=== PATIENT | male | born 1980 | race Two or more races ===

== ENCOUNTER → 2022-03-15 11:53 | Outpatient (CLI) | payer OTHER, SELFPAY ==
--- NOTE | ~2022-03-15 | XR_ITS ---
EXAMINATION: XR abdomen/kub 1V INDICATION: Bilateral flank and lower abdominal pain TECHNIQUE: Supine views of the abdomen were obtained on 2 radiographs. COMPARISON: 04/04/2016 FINDINGS: A 6 mm calcification projects over right L4 transverse process. The bowel gas pattern is no rmal. The visualized lung bases are clear. IMPRESSION: 1. 6 mm calcification of the right mid abdomen which could reflect a ureteral stone. Consider correla tion with urinalysis and possible CT. Reviewed, dictated and finalized at location L. RWEAR HEMMER IMPRESSION: 1. 6 mm calcification of the right mid abdomen which could reflect a ureteral s tone. Consider correlation with urinalysis and possible CT.
--- NOTE | ~2022-03-15 | XR_ITS ---
EXAMINATION: XR thoracic spine 3V DATE: 03/15/2022 12:17 INDICATION: Bilateral flank pain TECHNIQUE: AP, lateral and lateral swimmer's views of the thoracic spine were obtained. COMPARISON: None. FINDINGS: No fracture, dislocation, or subluxation. The vertebral body heights, alignment, and interv ertebral disc spaces are normal. The paravertebral soft tissues are unremarkable. IMPRESSION: 1. No radiographic correlate for the patient's symptoms. Reviewed, dictated and finalized at location L. RESSOR SERVICE TECHNICIAN
== END ==
PROVIDERS: PCP Family Medicine; Visit Provider Family Medicine
DX: R10.9 Unspecified abdominal pain (principal)
CPT/HCPCS: 72072; 74018

== ENCOUNTER → 2022-03-23 10:11 | Outpatient (CLI) | payer OTHER, SELFPAY ==
--- NOTE | ~2022-03-23 | CT_ITS ---
EXAMINATION: CT abdomen pelvis wo con DATE: 03/23/2022 10:28 INDICATION: Right ureteral stone TECHNIQUE: Computed tomography (CT) of the abdomen and pelvis was performed without intravenous contr ast. Automated exposure control and iterative reconstruction technique were employed. Exam dose: 486 .99 mGy-cm total exam DLP. COMPARISON: 03/15/2022 KUB: 6 microcalcifications reported in the right midabdomen overlying right L4 transverse process 03/12/2016 CT abdomen pelvis FINDINGS: The lung bases are clear. Normal heart size. No pericardial or pleural effusion. The gallbladder is contracted. No hepatic, splenic, pancreatic, adrenal or renal space-occupying mass lesion is detected. There is a nonobstructing 3.7 mm left renal calculus. No other urinary tract ca lculus or hydroureteronephrosis. There is a prominent up to approximately 9.5 cm calcification in the mesentery, benign in appearance, without any abnormal soft tissue mass or associated scarring. Normal appendix. No bowel obstruction, bowel wall thickening, pneumatosis or free air. Normal caliber of the abdominal aorta. No intraperitoneal or retroperitoneal mass lesion or lymphade nopathy or ascites. Very small fat containing umbilical hernia. Included skeletal structures are unremarkable. IMPRESSION: 3.7 mm nonobstructing left renal calculus. No other urinary tract calculus or hydrourete ronephrosis Normal appendix Reviewed, dictated and finalized at Location A. Reviewed, dictated and finalized at location B. CONTROL ENGINEER IMPRESSION: 3.7 mm nonobstructing left renal calculus. No other urinary tract calculus or hydroureteronephrosis Normal appendix
== END ==
PROVIDERS: PCP Family Medicine; Visit Provider Urology
DX: N20.0 Calculus of kidney (principal)
CPT/HCPCS: 74176

== ENCOUNTER → 2022-10-24 10:58 | Outpatient (CLI) | payer OTHER, SELFPAY ==
--- NOTE | ~2022-10-24 | XR_ITS ---
XR abdomen/kub 1V 10/24/2022 11:36 Indication: Ureteral stone Procedure: KUB Comparison: 03/15/2022 Findings: There is a 9 mm calcification lateral to the bowel 3 vertebra on the right, suspicious for proximal ureteral or UPJ stone. Bowel gas pattern is nonobstructive. Moderate colonic fecal loading. No acute osseous abnormality. Impression: 1: Possible right ureteral or UPJ stone measuring 9 mm. Reviewed, dictated and finalized at location B. Impression: 1: Possible right ureteral or UPJ stone measuring 9 mm.
== END ==
PROVIDERS: PCP Urology; Visit Provider Urology
DX: N20.1 Calculus of ureter (principal)
CPT/HCPCS: 74018

== ENCOUNTER 2023-06-27 16:04 | Outpatient (CLI) | payer OTHER, SELFPAY ==
--- NOTE | ~2023-06-27 | XR_ITS ---
XR wrist LT min 3V DATE: 06/27/2023 16:19 INDICATION: Right wrist pain TECHNIQUE: 4 views COMPARISON: None FINDINGS: No fracture or dislocation, periosteal reaction or bone destruction. Joint spaces are prese rved. No erosive change or chondrocalcinosis. IMPRESSION: Negative Reviewed, dictated and finalized at location A. IMPRESSION: Negative
--- NOTE | ~2023-06-27 | XR_ITS ---
XR wrist RT min 3V DATE: 06/27/2023 16:19 INDICATION: Right wrist pain TECHNIQUE: 4 views COMPARISON: None FINDINGS: No fracture or dislocation, avascular necrosis or bone destruction is detected. Joint space s are preserved. No erosive change or chondrocalcinosis. IMPRESSION: Negative Reviewed, dictated and finalized at location A. IMPRESSION: Negative
== END 2023-06-27 16:05 | disposition home or self-care (01) ==
PROVIDERS: PCP Family Medicine; Visit Provider Plastic Surgery
DX: M25.531 Pain in right wrist (principal); M25.532 Pain in left wrist
CPT/HCPCS: 73110

== ENCOUNTER 2023-07-11 12:46 | Outpatient (CLI) | payer OTHER, SELFPAY ==
--- NOTE | ~2023-07-11 | MR_ITS ---
EXAMINATION: MR wrist RT wo/w con DATE: 07/11/2023 13:45 INDICATION: Right wrist pain and limited range of motion. TECHNIQUE: Magnetic resonance imaging (MRI) of the right wrist was performed without and with 18 mL M ultihance intravenous contrast. Sequences performed include axial, sagittal and coronal T1-weighted F SE and T2-weighted FS FSE, axial T1-weighted FS FSE and postcontrast T1-weighted FS FSE. COMPARISON: Right wrist radiographs dated 06/27/2023 FINDINGS: Intrinsic ligaments: The scapholunate and lunotriquetral ligaments are normal. Triangular fibrocartilage complex (TFCC): The triangular fibrocartilage including its foveal and styloid attachments as well as the dorsal and volar radioulnar ligaments are normal. The ulnar collateral ligament, ulnotriquetral ligament and men iscal homologue are normal. The extensor carpi ulnaris tendon sheath is normal. Extensor wrist: Extensor tendons of the wrist are normal. No tenosynovitis. Flexor wrist: The flexor tendons of the wrist are normal. No abnormality in the carpal tunnel with normal median n erve. Guyon's canal: Guyon's canal including the ulnar nerve and artery are normal. Bones/other: Normal marrow signal. No fracture, avascular necrosis or pathologic marrow replacing process. Small i ntraosseous ganglion cyst at the ulnar side of the lunate arising from the dorsal margin of the artic ulation with the scaphoid. Joint spaces are normal with no focal cartilage defects appreciated. There is a 5 x 5 x 2 mm fluid collection likely representing a ganglion cyst is located dorsal to the thaddeus te between the radial lunotriquetral ligament and the more superficial extensor digitorum tendons and likely arising from the midcarpal joint. IMPRESSION: 1. 5 x 5 x 2 mm likely ganglion cyst arising from midcarpal joint and dorsal to the lunate and small intraosseous ganglion cyst at the dorsal/ulnar aspect of the lunate. Otherwise normal right wrist MRI . Reviewed, dictated and finalized at location A. IMPRESSION: 1. 5 x 5 x 2 mm likely ganglion cyst arising from midcarpal joint and dorsal to the lunate and small intraosseous ganglion cyst at the dorsal/ulnar aspect of the lunate. Otherwise normal right wrist MRI.
== END 2023-07-11 12:47 ==
PROVIDERS: PCP Family Medicine; Visit Provider Plastic Surgery
DX: M25.531 Pain in right wrist (principal); M67.431 Ganglion, right wrist
CPT/HCPCS: 73223; A9577

== ENCOUNTER 2023-08-07 05:55 | Day surgery (SDC) | payer OTHER, SELFPAY ==
[2023-06-23 09:07] VITALS: BMI 25.7
[2023-07-20 14:50] VITALS: BMI 24.4
--- NOTE | 2023-08-01 09:35 | PM.HPGS ---
History of Present Illness History of Present Illness Consent: Risks, benefits, and alternatives have been discussed and questions answered. Patient agrees to proceed with procedure. Chief complaint: Gerd w/o esophagitis, dysphonia Narrative: David Molina is a 43 year old male with persistent Being issues with his voice becoming hoarse and muffled and feeling of fullness in his throat. ENT physician could not find anything wrong. He was tried on medication is not seem to be effective. Now he is taking omeprazole 40 mg daily and had some improvement. He has never had heartburn. He denies dysphagia except occasionally for a pill. Review of Systems Review of Systems: All systems reviewed & are unremarkable except as noted in HPI and below PMFSH Past Medical History Medical History Chronic hoarseness Environmental allergies GERD (gastroesophageal reflux disease) Hemorrhoids Vitamin D deficiency Family History Family History Father Family history of coronary artery disease Other Anxiety Depression Diabetes mellitus Family history of thyroid disease Heart disease Social History Social History Smoking status: Never smoker Alcohol intake: current Drinks per week: 3 Substance use: never Substance use type: does not use Do You Feel Safe in your Home?: Yes Lack of Transportation: No Lack of Food: Never True Current Housing: I Have Housing Concerned About Future Housing: No Difficulty Paying Gas/Electric Bills: No Difficulty Paying for Meds: No Currently Unemployed: No Education: Bachelor's Degree Difficulty w/ Childcare or Family Care: No Living arrangements: with family Occupation/Education: occupation Gender identity (if verbalized by the patient): Male Spiritual care concerns: No Agree to blood products: Yes Meds Home Medications and Allergies Home Medications Medication Instructions Recorded Confirmed Type cholecalciferol (vitamin D3) 50 50 mcg PO DAILY #90 tabs 10/31/22 08/07/23 Rx mcg (2,000 unit) tablet fluticasone propionate 50 2 spray intranasal DAILY PRN 05/30/23 08/07/23 History mcg/actuation nasal Allergy Symptoms spray,suspension (Flonase Allergy Relief) loratadine 10 mg tablet (Claritin) 10 mg PO DAILY PRN Allergy Symptoms 05/30/23 08/07/23 History omeprazole 40 mg capsule,delayed 40 mg PO DAILY #90 caps 05/30/23 08/07/23 Rx release Allergies Allergy/AdvReac Type Severity Reaction Status Date / Time No Known Allergies Allergy Verified 08/07/23 06:22 Exam Const: General: alert Orientation/consciousness: patient oriented x3 Resp: Auscultation: clear to auscultation bilaterally Cardio: Rhythm: regular rhythm GI: GI Palp: Yes Soft to palpation and No Tenderness to palpation present (GI) Neuro: General: patient oriented x3 Assessment and Plan Assessment and plan (1) GERD (gastroesophageal reflux disease): Qualifiers: Esophagitis presence: without esophagitis Qualified Code(s): K21.9 - Gastro-esophageal reflux disease without esophagitis Code(s): K21.9 - Gastro-esophageal reflux disease without esophagitis Status: Acute Assessment and Plan: EGD with possible biopsy or dilatation or cautery.
[2023-08-07 06:23] VITALS: BP 108/79; PULSE 60; RESP 18; TEMP 36.8; O2SAT 99
--- NOTE | 2023-08-07 07:11 | WPDANESEPPF ---
Anes - Initial Pre Proc Eval Procedure: Operation Date: 08/07/23 07:30 Proposed Procedures p Esophagogastroduodenoscopy - Anival Taylor MD Date/Time: 08/07/23 07:11 Surgeon: Anival Taylor MD Pre Op Diagnosis: Gerd w/o esophagitis, dysphonia Patient Data Age: 43 Gender: M Height: 1.88 m Weight: 86.7 kg Last Vital Signs Temp 36.8 C 08/07/23 06:23 Pulse 60 08/07/23 06:23 Resp 18 08/07/23 06:23 BP 108/79 08/07/23 06:23 Pulse Ox 99 08/07/23 06:23 O2 Del Method Room Air 08/07/23 06:23 Allergies Allergy/AdvReac Type Severity Reaction Status Date / Time No Known Allergies Allergy Verified 08/07/23 06:22 Home Medications Medication Instructions Recorded Confirmed Type cholecalciferol (vitamin D3) 50 50 mcg PO DAILY #90 tabs 10/31/22 08/07/23 Rx mcg (2,000 unit) tablet fluticasone propionate 50 2 spray intranasal DAILY PRN 05/30/23 08/07/23 History mcg/actuation nasal Allergy Symptoms spray,suspension (Flonase Allergy Relief) loratadine 10 mg tablet (Claritin) 10 mg PO DAILY PRN Allergy Symptoms 05/30/23 08/07/23 History omeprazole 40 mg capsule,delayed 40 mg PO DAILY #90 caps 05/30/23 08/07/23 Rx release Patient hx anesthesia problems: none Family hx anesthesia problems: none Results Review: All pre-operative results and documents have been reviewed as part of the pre-operative evaluation. [facility] Past Medical History Medical History Chronic hoarseness Environmental allergies GERD (gastroesophageal reflux disease) Hemorrhoids Vitamin D deficiency Family History Family History Father Family history of coronary artery disease Other Anxiety Depression Diabetes mellitus Family history of thyroid disease Heart disease Social History Social History Smoking status: Never smoker Alcohol intake: current Drinks per week: 3 Substance use: never Substance use type: does not use Do You Feel Safe in your Home?: Yes Lack of Transportation: No Lack of Food: Never True Current Housing: I Have Housing Concerned About Future Housing: No Difficulty Paying Gas/Electric Bills: No Difficulty Paying for Meds: No Currently Unemployed: No Education: Bachelor's Degree Difficulty w/ Childcare or Family Care: No Living arrangements: with family Occupation/Education: occupation Gender identity (if verbalized by the patient): Male Spiritual care concerns: No Agree to blood products: Yes Anes - Eval Final PreProcedure Day of Procedure 08/07/23 07:11 Patient weight: normal Heart: regular rate and rhythm Lungs: clear to auscultation Airway: Mallampati scale class II Neurological: alert and oriented Last oral intake: >/= 8 hours ASA classification: II Emergent: no Anesthetic plan: proceed Anesthesia type and monitoring: general GIVS and standard monitoring Results Review: All pre-operative results and documents have been reviewed as part of the pre-operative evaluation. Informed Consent: The patient's anesthetic plan and its attendant risks and benefits were discussed with the patient/family/POA. Questions were solicited and answers provided to the satisfaction of the patient/family/POA.
[2023-08-07] MEDS: LACTATED RINGERS 1,000 ML 150 ML IV CONT (07:18)
[2023-08-07 07:40] VITALS: BP 104/75; PULSE 80; RESP 14; O2SAT 99
[2023-08-07 07:50] VITALS: BP 101/71; PULSE 60; RESP 15; O2SAT 98
[2023-08-07 08:00] VITALS: BP 103/73; PULSE 59; RESP 14; O2SAT 99
--- NOTE | 2023-08-07 08:40 | WPDANESPN ---
Anes - Prog Note Post-Op Date/Time: 08/07/23 08:40 Cardiovascular status: normal Respiratory status: normal Airway patency: baseline Mental status: baseline Post-Op hydration status: normal Vital Signs: Last Vital Signs Temp 36.8 C 08/07/23 06:23 Pulse 59 L 08/07/23 08:00 Resp 14 08/07/23 08:00 BP 103/73 08/07/23 08:00 Pulse Ox 99 08/07/23 08:00 O2 Del Method Room Air 08/07/23 08:00 Pain Score (VAS): 0/10 I/O: Intake & Output 08/06/23 08/07/23 08/07/23 23:59 07:59 15:59 Intake Total 200 400 Balance 200 400 Patient Feedback: Patient satisfied with anesthetic care.
--- NOTE | 2023-08-07 08:43 | SUR.PHASEII ---
Pt's ride delayed for pickup following procedure at [facility]. Pt recovered and doing well, VSS. Pt's ride to call upon arrival. Pt resting comfortably in post-op room until ride arrives, pt states no further needs.
== END 2023-08-07 08:44 | disposition home or self-care (01) ==
PROVIDERS: PCP Family Medicine; Visit Provider Internal Medicine Gastroenterology
PROC: 0DJ08ZZ Inspection of Upper Intestinal Tract, Via Natural or Artificial Opening Endoscopic (ICD-10-PCS; CPT 43235; principal; 2023-08-07 07:30)
DX: K21.9 Gastro-esophageal reflux disease without esophagitis (principal)
CPT/HCPCS: 43239

== ENCOUNTER 2023-08-07 07:00 | Outpatient (NON) | payer OTHER, SELFPAY | END 2023-08-08 14:07 | disposition home or self-care (01) | PROVIDERS: PCP Family Medicine; Visit Provider Internal Medicine Gastroenterology | DX: K21.9 Gastro-esophageal reflux disease without esophagitis (principal) | CPT/HCPCS: 88305 ==

== ENCOUNTER 2023-10-16 06:18 | Day surgery (SDC) | payer OTHER, SELFPAY ==
[2023-09-21 08:46] VITALS: BMI 24.4
[2023-10-04 10:39] VITALS: BMI 24.6
[2023-10-16 06:57] VITALS: BP 106/76; PULSE 67; RESP 16; TEMP 36.8; O2SAT 98; BMI 24.0
--- NOTE | 2023-10-16 07:01 | PM.HPGS ---
History of Present Illness History of Present Illness Consent: Risks, benefits, and alternatives have been discussed and questions answered. Patient agrees to proceed with procedure. Chief complaint: Neoplasm Screening Narrative: David Molina is a 43 year old male who is referred for colon cancer screening. Review of Systems Review of Systems: All systems reviewed & are unremarkable except as noted in HPI and below PMFSH Past Medical History Medical History Chronic hoarseness Environmental allergies GERD (gastroesophageal reflux disease) Hemorrhoids Vitamin D deficiency Family History Family History Father Family history of coronary artery disease Other Anxiety Depression Diabetes mellitus Family history of thyroid disease Heart disease Social History Social History Smoking status: Never smoker Alcohol intake: current Drinks per week: 3 Substance use: never Substance use type: does not use Do You Feel Safe in your Home?: Yes Lack of Transportation: No Lack of Food: Never True Current Housing: I Have Housing Concerned About Future Housing: No Difficulty Paying Gas/Electric Bills: No Difficulty Paying for Meds: No Currently Unemployed: No Education: Bachelor's Degree Difficulty w/ Childcare or Family Care: No Living arrangements: with family Occupation/Education: occupation Gender identity (if verbalized by the patient): Male Spiritual care concerns: No Agree to blood products: Yes Meds Home Medications and Allergies Home Medications Medication Instructions Recorded Confirmed Type cholecalciferol (vitamin D3) 50 50 mcg PO DAILY #90 tabs 10/31/22 10/04/23 Rx mcg (2,000 unit) tablet fluticasone propionate 50 2 spray intranasal DAILY PRN 05/30/23 10/04/23 History mcg/actuation nasal Allergy Symptoms spray,suspension (Flonase Allergy Relief) loratadine 10 mg tablet (Claritin) 10 mg PO DAILY PRN Allergy Symptoms 05/30/23 10/04/23 History Allergies Allergy/AdvReac Type Severity Reaction Status Date / Time No Known Allergies Allergy Verified 10/16/23 06:55 Vital Signs Vital Signs - 24 hr 10/16/23 06:57 Temperature 36.8 C Pulse Rate 67 Respiratory Rate 16 Blood Pressure 106/76 Pulse Oximetry 98 Oxygen Delivery Room Air Exam Resp: Auscultation: clear to auscultation bilaterally Cardio: Rate: regular rate Rhythm: regular rhythm GI: GI Palp: Yes Soft to palpation and No Tenderness to palpation present (GI) Assessment and Plan Assessment and plan (1) Colon cancer screening: Code(s): Z12.11 - Encounter for screening for malignant neoplasm of colon Status: Acute Assessment and Plan: Colonoscopy with possible biopsy or polypectomy or cautery or injection of substances.
[2023-10-16] MEDS: LACTATED RINGERS 1,000 ML 150 ML IV CONT (07:10)
--- NOTE | 2023-10-16 07:12 | WPDANESEPPF ---
Anes - Initial Pre Proc Eval Procedure: Operation Date: 10/16/23 08:00 Proposed Procedures p Screening Colonoscopy - Anival Taylor MD Date/Time: 10/16/23 07:12 Surgeon: Anival Taylor MD Pre Op Diagnosis: Neoplasm Screening Patient Data Age: 43 Gender: M Height: 1.88 m Weight: 85 kg Last Vital Signs Temp 36.8 C 10/16/23 06:57 Pulse 67 10/16/23 06:57 Resp 16 10/16/23 06:57 BP 106/76 10/16/23 06:57 Pulse Ox 98 10/16/23 06:57 O2 Del Method Room Air 10/16/23 06:57 Allergies Allergy/AdvReac Type Severity Reaction Status Date / Time No Known Allergies Allergy Verified 10/16/23 06:55 Home Medications Medication Instructions Recorded Confirmed Type cholecalciferol (vitamin D3) 50 50 mcg PO DAILY #90 tabs 10/31/22 10/04/23 Rx mcg (2,000 unit) tablet fluticasone propionate 50 2 spray intranasal DAILY PRN 05/30/23 10/04/23 History mcg/actuation nasal Allergy Symptoms spray,suspension (Flonase Allergy Relief) loratadine 10 mg tablet (Claritin) 10 mg PO DAILY PRN Allergy Symptoms 05/30/23 10/04/23 History Patient hx anesthesia problems: none Family hx anesthesia problems: none Results Review: All pre-operative results and documents have been reviewed as part of the pre-operative evaluation. [facility] Past Medical History Medical History Chronic hoarseness Environmental allergies GERD (gastroesophageal reflux disease) Hemorrhoids Vitamin D deficiency Family History Family History Father Family history of coronary artery disease Other Anxiety Depression Diabetes mellitus Family history of thyroid disease Heart disease Social History Social History Smoking status: Never smoker Alcohol intake: current Drinks per week: 3 Substance use: never Substance use type: does not use Do You Feel Safe in your Home?: Yes Lack of Transportation: No Lack of Food: Never True Current Housing: I Have Housing Concerned About Future Housing: No Difficulty Paying Gas/Electric Bills: No Difficulty Paying for Meds: No Currently Unemployed: No Education: Bachelor's Degree Difficulty w/ Childcare or Family Care: No Living arrangements: with family Occupation/Education: occupation Gender identity (if verbalized by the patient): Male Spiritual care concerns: No Agree to blood products: Yes Anes - Eval Final PreProcedure Day of Procedure 10/16/23 07:12 Patient weight: normal Heart: regular rate and rhythm Lungs: clear to auscultation Airway: Mallampati scale class II Neurological: alert and oriented Last oral intake: >/= 8 hours ASA classification: II Emergent: no Anesthetic plan: proceed Anesthesia type and monitoring: general GIVS and standard monitoring Results Review: All pre-operative results and documents have been reviewed as part of the pre-operative evaluation. Informed Consent: The patient's anesthetic plan and its attendant risks and benefits were discussed with the patient/family/POA. Questions were solicited and answers provided to the satisfaction of the patient/family/POA.
[2023-10-16 08:33] VITALS: BP 102/70; PULSE 68; RESP 15; O2SAT 100
--- NOTE | 2023-10-16 08:39 | WPDANESPN ---
Anes - Prog Note Post-Op Date/Time: 10/16/23 08:39 Cardiovascular status: normal Respiratory status: normal Airway patency: baseline Mental status: baseline Post-Op hydration status: normal Vital Signs: Last Vital Signs Temp 36.8 C 10/16/23 06:57 Pulse 68 10/16/23 08:36 Resp 15 10/16/23 08:36 BP 102/70 10/16/23 08:36 Pulse Ox 100 10/16/23 08:36 O2 Del Method Room Air 10/16/23 08:36 Pain Score (VAS): 0/10 I/O: Intake & Output 10/15/23 10/16/23 10/16/23 23:59 07:59 15:59 Intake Total 800 Balance 800 Patient Feedback: Patient satisfied with anesthetic care.
[2023-10-16 08:43] VITALS: BP 113/76; PULSE 68; RESP 16; O2SAT 100
[2023-10-16 08:53] VITALS: BP 122/76; PULSE 60; RESP 18; O2SAT 100
== END 2023-10-16 09:12 | disposition home or self-care (01) ==
PROVIDERS: PCP Family Medicine; Visit Provider Internal Medicine Gastroenterology
PROC: 0DJD8ZZ Inspection of Lower Intestinal Tract, Via Natural or Artificial Opening Endoscopic (ICD-10-PCS; CPT 45378; principal; 2023-10-16 08:00)
DX: Z12.11 Encounter for screening for malignant neoplasm of colon (principal); D12.4 Benign neoplasm of descending colon; K64.8 Other hemorrhoids
CPT/HCPCS: 45385

== ENCOUNTER 2023-10-16 07:44 | Outpatient (NON) | payer OTHER, SELFPAY | END 2023-10-16 07:45 | disposition home or self-care (01) | PROVIDERS: PCP Family Medicine; Visit Provider Internal Medicine Gastroenterology | DX: Z12.11 Encounter for screening for malignant neoplasm of colon (principal) | CPT/HCPCS: 88305 ==

== ENCOUNTER 2023-10-30 15:37 | Outpatient (CLI) | payer OTHER, SELFPAY ==
--- NOTE | ~2023-10-30 | XR_ITS ---
EXAMINATION: XR abdomen/kub 1V DATE: 10/30/2023 15:49 INDICATION: Left kidney stone. TECHNIQUE: A supine view of the abdomen on 2 radiographs was obtained. COMPARISON: Abdomen radiographs 10/24/2022, CT abdomen and pelvis 03/23/2022 FINDINGS: There are no dilated loops of bowel. There is no visible urolithiasis. There is a chronic r ight abdominal calcification. IMPRESSION: 1. No visible urolithiasis. Reviewed, dictated and finalized at location A. IMPRESSION: 1. No visible urolithiasis.
== END 2023-10-30 15:38 ==
LOC: MICIMG 15:39
PROVIDERS: PCP Urology; Visit Provider Urology
DX: N20.0 Calculus of kidney (principal)
CPT/HCPCS: 74018

== ENCOUNTER 2023-10-31 11:19 | Outpatient (CLI) | payer OTHER, SELFPAY ==
--- NOTE | ~2023-10-31 | US_ITS ---
EXAMINATION: US thyroid DATE: 10/31/2023 11:35 INDICATION: Localized swelling, mass and lump, neck. TECHNIQUE: Multiple ultrasound images of the thyroid were obtained. COMPARISON: None. FINDINGS: The right thyroid lobe measures 6.2 x 1.8 x 2.2 cm. The left thyroid lobe measures 5.9 x 1.3 x 1.6 c m. There is normal echotexture and echogenicity throughout the thyroid gland. No discrete nodules id entified. Normal vascular flow is present. IMPRESSION: 1. Normal thyroid. Reviewed, dictated and finalized at location A. IMPRESSION: 1. Normal thyroid.
== END 2023-10-31 11:20 ==
LOC: MICIMG 11:20
PROVIDERS: PCP Nurse Practitioner Family; Visit Provider Nurse Practitioner Family
DX: R22.1 Localized swelling, mass and lump, neck (principal)
CPT/HCPCS: 76536

== ENCOUNTER 2023-12-11 15:06 | Outpatient (CLI) | payer OTHER, SELFPAY ==
--- NOTE | ~2023-12-11 | US_ITS ---
EXAMINATION: US carotid duplex BI DATE: 12/11/2023 15:36 INDICATION: Transient visual loss, left eye. TECHNIQUE: Grayscale, color Doppler, and pulsed Doppler images of the cervical carotid arteries were obtained. The degree of vessel stenosis is placed in one of the following categories: normal, <50%, 5 0-69%, >=70% but less than near-occlusion, near-occlusion, or total occlusion. Note that percent sten osis relative to normal distal artery lumen diameter is indirectly measured from velocity measurement s as described by Lawrence, et al. Radiology 2003; 229:340-346. COMPARISON: None. FINDINGS: RIGHT: The right common carotid artery (CCA) peak systolic velocity (PSV) is 100 cm/s. The right internal ca rotid artery (ICA) PSV is 97 cm/s. The right ICA end-diastolic velocity (EDV) is 25 cm/s. The right I CA/CCA PSV ratio is 1.0. Grayscale and color Doppler images yield an estimate of <50% diameter reduct ion from plaque in the ICA. There is antegrade flow in the right vertebral artery. LEFT: The left CCA PSV is 123 cm/s. The left ICA PSV is 94 cm/s. The left ICA EDV is 28 cm/s. The left ICA/ CCA PSV ratio is 1.1. Grayscale and color Doppler images yield an estimate of <50% diameter reduction from plaque in the ICA. There is antegrade flow in the left vertebral artery. IMPRESSION: 1. <50% stenosis in the right internal carotid artery. 2. <50% stenosis in the left internal carotid artery. Reviewed, dictated and finalized at location A.
== END 2023-12-11 15:07 | disposition home or self-care (01) ==
LOC: MICIMG 15:07
PROVIDERS: PCP Family Medicine; Visit Provider Family Medicine
DX: H53.122 Transient visual loss, left eye (principal); I65.23 Occlusion and stenosis of bilateral carotid arteries
CPT/HCPCS: 93880

== ENCOUNTER 2023-12-25 10:44 | Outpatient (CLI) | payer OTHER, SELFPAY ==
--- NOTE | ~2023-12-25 | MR_ITS ---
EXAMINATION: MR brain/brain stem wo/w con DATE: 12/25/2023 11:32 INDICATION: Amaurosis fugax with transient left eye visual loss TECHNIQUE: Magnetic resonance imaging (MRI) of the brain and brainstem was performed without intraven ous contrast. Sequences included sagittal and axial T1-weighted SE, axial diffusion-weighted FS SE, a xial T2*-weighted GRE, axial T2-weighted FLAIR, and axial T2-weighted FSE. Postcontrast axial and cor onal T1-weighted SE was obtained. Apparent diffusion coefficient (ADC) maps were created. COMPARISON: None. FINDINGS: There are no areas of restricted diffusion to suggest acute infarction. No intracranial hemorrhage or abnormal intracranial mass lesion. There are no intraparenchymal signal abnormalities seen on the ot her pulse sequences. The ventricles are symmetric and normal in size. There are no abnormal extra-axi al fluid collections. Flow voids are seen in the cerebral arteries on the T2-weighted sequences consi stent with their expected patency. Visualized orbits and soft tissues are unremarkable. There are no areas of abnormal enhancement on the post contrast images. IMPRESSION: 1. Normal brain MR. Reviewed, dictated and finalized at location A. IMPRESSION: 1. Normal brain MR.
== END 2023-12-25 10:45 | disposition home or self-care (01) ==
LOC: MICIMG 10:45
PROVIDERS: PCP Family Medicine; Visit Provider Family Medicine
DX: H53.122 Transient visual loss, left eye (principal)
CPT/HCPCS: 70553; A9577

== ENCOUNTER 2024-11-11 15:38 | Outpatient (CLI) | payer OTHER, SELFPAY ==
--- NOTE | ~2024-11-11 | XR_ITS ---
EXAMINATION: XR abdomen/kub 1V, 11/11/2024 15:50 CDT HISTORY: Calculus of kidney COMPARISON: No comparisons available. Technique: 3 view. Findings: Bowel gas pattern unremarkable. No obstruction. Right kidney lower pole renal calculus measures 1 x 1 cm. Distinction from ureteral calculus is limited, CT suggested to assess. No acute osseous abnormality. Impression: 1. Please see above. Reviewed, dictated and finalized at location A. Impression: 1. Please see above.
== END 2024-11-11 15:39 | disposition home or self-care (01) ==
PROVIDERS: PCP Urology; Visit Provider Urology
DX: N20.0 Calculus of kidney (principal)
CPT/HCPCS: 74018